=== PATIENT | female | born 1985 | race Caucasian/White ===

== ENCOUNTER 2017-07-25 15:01 | Emergency (ER) | payer OTHER ==
[2017-07-25 15:21] VITALS: TEMP 98.6
--- NOTE | 2017-07-25 15:48 | EDPHY ---
General Narrative: CHIEF COMPLAINT: Fall, laceration HISTORY OF PRESENT ILLNESS: Patient complains of laceration to the left knee that she sustained around 12: 00 p.m. today. She was running on a trail when she tripped. She struck her left knee on a rock. No bony tenderness. No injury elsewhere but she does have a laceration on the left knee over the patella. Bleeding that has stopped with simple pressure. No difficulty weight-bearing. No radiating pain. No numbness or tingling. No head strike or loss of consciousness no complaints anywhere else on her person. Tetanus is up-to-date less than 4 years ago. No other associated complaints or modifying factors TIME OF INJURY: 12:00 p.m. today TETANUS STATUS: Less than 4 years ago MEDICAL/SURGICAL/SOCIAL HISTORY: No significant medical surgical history. Works as a [employer] in [employer]. Lives here in [place] REVIEW OF SYSTEMS: Ten systems reviewed and are negative unless otherwise noted in the HPI EXAMINATION General Appearance: Alert, no distress Head: normocephalic, atraumatic Cardiovascular: Pulses normal throughout. Symmetric DP and PT pulses 2+. Neurological: A&O, sensory symmetric, strength symmetric. No foot drop. Normal proprioception of the left great toe Skin: Warm and dry, no rash. 2 cm laceration to the left anterior knee. Superficial. No foreign body. No active bleeding. Extremities: Minimal tenderness of the left knee over the laceration. There is no bony tenderness of the knee. Range of motion is symmetric in the ankles and knees. Neurovascular intact distally. DIFFERENTIAL DIAGNOSES: Including but not limited to laceration, superficial laceration, complex laceration MDM: 3:45 p.m. Laceration of the left anterior knee over the kneecap. No bony tenderness. Full range of motion without any difficulty or pain. She is fully weight- bearing with no pain. I do not feel that she warrants an x-ray as there is no indication of underlying abnormality or any evidence of foreign body per she is comfortable this. Laceration has been anesthetized. Proceed with irrigation closure 4:30 p.m. Laceration has been repaired without complication. Tolerated well. Good approximation. Neurovascular intact pre and postprocedure. Wound care discussed. Return to emergency department in 7-10 days for suture removal. Return sooner for any redness, warmth, difficulty bending or straightening the knee, fever. Light weight-bearing as tolerated for the duration of the sutures. No running or cycling until sutures removed. She is comfortable this plan and discharged in stable condition. PROCEDURE: Laceration repair Consent: Verbal Location: Left knee, anterior Length of repair: 2 cm Complexity: Simple Layer involvement: Single Anesthesia: Local. 1% lidocaine, mL Irrigation: Extensive Debridement: None Procedure description: Following good anesthesia, the wound was copiously irrigated. Wound bed was explored and there is no foreign body noted. Wound borders were approximated well with good hemostasis. Tolerated well without complication. Suture/Staple material: 4-0 Prolene, 3 simple interrupted sutures Wound care: Routine as discussed Suture/Staple removal: 7-10 Days ED Precautions: Worsening pain. Erythema, edema, cyanosis, pallor, paresthesia or anesthesia. - History Smoking Status: Never smoked - Objective Vital Signs: Initial Vital Signs Temperature (C) 98.6 F 07/25/17 15:18 Heart Rate 78 07/25/17 15:18 Respiratory Rate 20 07/25/17 15:18 Blood Pressure 115/76 07/25/17 15:18 O2 Sat (%) 99 07/25/17 15:18 O2 Delivery Mode Room Air Allergies/Adverse Reactions: penicillin V potassium [From Pen-Vee K] Allergy (Mild, Verified 07/25/17 15:17) Rash Home Medications: Medication Instructions Recorded NK [No Known Home Meds] 07/25/17 Departure - Departure Disposition: Home, Routine, Self-Care Clinical Impression: Laceration of knee, left Qualifiers: Encounter type: initial encounter Qualified Code(s): S81.012A - Laceration without foreign body, left knee, initial encounter Condition: Good Instructions: Care For Your Stitches (ED), Laceration (ED) Additional Instructions: 1. Daily wound care as discussed 2. Return to ED in 7-10 days for suture removal 3. Return for any signs of infection should that develop Referrals: Lamar Huddleston [Primary Care Provider] - As per Instructions
[2017-07-25 16:38] VITALS: BP 110/70; PULSE 68; O2SAT 98
[2017-07-25 16:40] VITALS: RESP 16
== END 2017-07-25 16:42 | disposition home or self-care (01) ==
PROC: 0HQLXZZ Repair Left Lower Leg Skin, External Approach (ICD-10-PCS; principal; 2017-07-25)
DX: S81.012A Laceration without foreign body, left knee, initial encounter (principal); W01.198A Fall on same level from slipping, tripping and stumbling with subsequent striking against other object, initial encounter; Y99.8 Other external cause status; Y93.02 Activity, running